=== PATIENT | male | born 1980 | race Caucasian/White ===

== ENCOUNTER 2017-05-24 08:06 | Emergency (ER) | payer OTHER ==
[~2017-05-24] VITALS: Ht 162.6 cm; Wt 59.0 kg
[2017-05-24 08:10] VITALS: BP 124/80
== END 2017-05-24 09:02 | disposition home or self-care (01) ==
LOC: ER 08:07
DX: S93.401A Sprain of unspecified ligament of right ankle, initial encounter (principal); F10.10 Alcohol abuse, uncomplicated; W01.0XXA Fall on same level from slipping, tripping and stumbling without subsequent striking against object, initial encounter; Y93.02 Activity, running; Y92.89 Other specified places as the place of occurrence of the external cause; Y99.8 Other external cause status
CPT/HCPCS: 99281; A4606; Z7610; Z7502

== ENCOUNTER 2023-08-17 00:20 | Emergency (ER) | payer OTHER ==
[~2023-08-17] VITALS: Ht 162.6 cm; Wt 61.2 kg
[2023-08-17 01:00] VITALS: BP 130/88; TEMP 98.7; O2SAT 100
[2023-08-17] MEDS ORDERED: TDAP [DIPH/PERTUSSIS/TET] 0.5 ML VIAL IM ONE (02:31)
[2023-08-17] MEDS: TDAP [DIPH/PERTUSSIS/TET] 0.5 ML VIAL IM ONE (02:32)
== END 2023-08-17 03:12 | disposition home or self-care (01) ==
LOC: ER 00:23
DX: S01.412A Laceration without foreign body of left cheek and temporomandibular area, initial encounter (principal); Y04.0XXA Assault by unarmed brawl or fight, initial encounter; Y93.89 Activity, other specified; Y92.59 Other trade areas as the place of occurrence of the external cause; Y99.8 Other external cause status
CPT/HCPCS: 90715

== ENCOUNTER 2023-08-19 12:57 | Emergency (ER) | payer OTHER ==
[~2023-08-19] VITALS: Ht 162.6 cm; Wt 63.5 kg
[2023-08-19 13:31] VITALS: BP 114/67; TEMP 98.2; O2SAT 99
== END 2023-08-19 14:52 | disposition home or self-care (01) ==
LOC: ER 13:09
DX: Z48.00 Encounter for change or removal of nonsurgical wound dressing (principal); F10.10 Alcohol abuse, uncomplicated; Y90.9 Presence of alcohol in blood, level not specified